=== PATIENT | male | born 1975 ===

== ENCOUNTER 2021-10-31 04:23 | Day surgery (SDC) | payer OTHER ==
[2021-10-28 10:44] VITALS: BMI 29.0
[2021-10-31 13:10] VITALS: BP 114/68
[2021-10-31 14:33] VITALS: PULSE 60; TEMP 98.4
== END 2021-10-31 13:30 | disposition home or self-care (01) ==
LOC: JASU-ENDO 04:23
PROVIDERS: ATTEND Internal Medicine Gastroenterology
PROC: 0DBK8ZX Excision of Ascending Colon, Via Natural or Artificial Opening Endoscopic, Diagnostic (ICD-10-PCS; principal; 2021-10-31 12:15)
DX: D12.2 Benign neoplasm of ascending colon (principal); K57.30 Diverticulosis of large intestine without perforation or abscess without bleeding
CPT/HCPCS: 88305-TC